=== PATIENT | male | born 1990 ===

== ENCOUNTER 2025-03-21 18:25 | Emergency (ER) | payer SELFPAY ==
[2025-03-21 18:31] VITALS: BP 149/91; BP 189/99; PULSE 80; PULSE 90; RESP 16; TEMP -17.7; TEMP 0; O2SAT 99; BMI 27.4
--- NOTE | 2025-03-21 18:35 | ED.GENADULT ---
HPI - General Adult General Stated complaint: Drug use Time Seen by Provider: 03/21/25 18:30 Source: patient and RN notes reviewed Mode of arrival: EMS Limitations: other (The patient is uncooperative) History of Present Illness ED Provider: Hortencia HPI narrative: 34-year-old male presents for evaluation via EMS for possible drug use. Per EMS, the police saw the patient ?sleeping on the sidewalk. Therefore they called EMS for transport to the hospital for possible drug use. The patient reports drinking 1 beer today but denies any other illicit substances. He offers no complaints, denies any pain He is demanding discharge immediately upon arrival Related Data Allergies Allergy/AdvReac Type Severity Reaction Status Date / Time No Known Allergies Allergy Verified 03/21/25 18:35 Review of Systems Constitutional: Constitutional: Denies body ache(s), Denies chills and Denies fever(s) Cardiovascular: Cardiovascular: Denies chest pain Psychiatric: Psychiatric: Denies homicidal ideation and Denies suicidal ideation Physical Exam ED Const General: healthy appearing, comfortable, no acute distress, alert and awake Nutritional Appearance: well nourished Orientation/consciousness: patient oriented x3 HENMT Head: Yes normocephalic and Yes atraumatic Eyes Eyelids: Yes eyelids normal Conjunctivae: conjunctivae normal Sclerae: sclerae normal Corneas: corneas normal Pupils: Equal, round and reactive pupils present EOM: EOMs intact bilaterally Neck Neck: Yes full ROM Resp Effort & Inspection: normal respiratory effort, able to speak in complete sentences and not labored Skin General skin exam: no rashes or lesions noted and elasticity normal Neuro General: patient oriented x3 Cranial nerves: Yes CN's II-XII intact bilaterally, Yes Equal, round and reactive pupils present and Yes Bilaterally intact EOM present Cognition (Neuro): normal cognition Extrem Other: Moving all extremities well without any obvious deformities Medical Decision Making Medical Decision Making MDM Narrative: Patient arrives via EMS for suspected substance abuse. The patient denies any complaints or concerns including fevers, chills, chest pain. He denies any depression or suicidal thoughts. He admits to drinking 1 beer today but denies illicit substance abuse. He is wide awake, alert and oriented. His vital signs are stable. He offers no complaints and requests discharge. He will be discharged as I do not see any reason to hold him against his wishes Differential Diagnosis Differential Diagnoses: The differential diagnosis associated with the presentation includes Well visit Substance abuse Alcohol abuse Intoxication Discharge Plan Discharge Clinical Impression: Adult wellness visit Patient Disposition: Home, Self-Care Additional Instructions: You were seen in the emergency department and immediately requested discharge. Your vital signs were stable in you did not appear confused You were therefore discharged at your request
--- NOTE | 2025-03-21 18:35 | PC.NURSE ---
SIMON Alexander to bedside for eval on arrival as patient wanting to leave. Pt upset with staff. Ambulated with steady gait out of ED
== END 2025-03-21 18:54 | disposition home or self-care (01) ==
LOC: HO.ED 18:50
PROVIDERS: Emergency Provider Emergency Medicine
DX: Z03.89 Encounter for observation for other suspected diseases and conditions ruled out (principal)
CPT/HCPCS: 99281; 99282